=== PATIENT | female | born 1955 | race American Indian/Alaskan Native ===

== ENCOUNTER 2016-12-26 09:39 | Emergency (ER) | payer MEDICARE ==
[2016-12-26 10:16] VITALS: BP 188/82
[2016-12-26] MEDS ORDERED: DECADRON IM ONE (12:22)
[2016-12-26] MEDS ORDERED: TORADOL IM ONE (12:22)
--- NOTE | 2016-12-26 12:22 | Emergency Department Report ---
Upper Extremity - HPI Chief Complaint: Extremity Injury, Upper Stated Complaint: GOUT Time Seen by Provider: 12/26/16 11:40 Upper Extremity: Left Hand (pain, swelling ,redness) Occurred When: >5 Days Mechanism: Other (gout flareup) Severity: severe Symptoms: Yes Pain with Movement (left hand), Yes Limited Range of Movement ( hand, Left), Yes Swelling, No Deformity, No Numbness, No Weakness, No Bruising/ Ecchymosis, No Laceration or Abrasion Other History: Patient here reports that failure to left hand. She reports swelling, redness and pain at the base of her left index finger. Weeks. She states been taking Aleve without any relief. Patient reports eats meat everyday and she's been eating shrimp. She reports that she used to be on medication to prevent gout but she hasn't been on it for a while.pain is 10 out of 10 and aching. Denies any fever or chills. Denies any trauma.Pt had similar incident in the past at same site. ED Review of Systems ROS: Stated complaint: GOUT Other details as noted in HPI Comment: All other systems reviewed and negative Constitutional: denies: chills, fever Respiratory: no symptoms reported Cardiovascular: denies: chest pain, palpitations, edema, syncope Gastrointestinal: denies: abdominal pain, nausea, vomiting Musculoskeletal: joint swelling, arthralgia. denies: back pain Skin: denies: rash Neurological: denies: headache, numbness, paresthesias ED Past Medical Hx - Past Medical History Previous Medical History?: Yes Hx Hypertension: Yes Hx Arthritis: Yes Additional medical history: gout, high cholesterol, depression - Surgical History Past Surgical History?: Yes Additional Surgical History: RIGHT FOOT SURGERY - Family History Family history: no significant - Social History Smoking Status: Never Smoker Substance Use Type: Alcohol - Medications Home Medications: Home Medications Medication Instructions Recorded Confirmed Last Taken Type Amoxicillin [Trimox CAP] 500 mg PO Q8H #30 capsule 03/19/14 Unknown Rx Antipyrine/Benzocaine 14 ml OT QID PRN #1 bottle 03/19/14 Unknown Rx [Antipyrine-Benzocaine Otic Melissa] Colchicine [Colcrys] 0.6 mg PO TID PRN #15 tab 12/26/16 Unknown Rx Ibuprofen [Motrin] 600 mg PO Q8H PRN #15 tablet 12/26/16 Unknown Rx methylPREDNISolone [Medrol Dose 4 mg PO DAILY #1 package 12/26/16 Unknown Rx Jesus] Upper Extremity Exam - Exam General: Vital signs noted. No distress. Alert and acting appropriately. This is a 61-year-old female well-nourished well-developed in no acute distress. Head and Torso: No HEENT Abnormality, No Neck Tenderness, No Chest/Lungs Abnormality, No Abdominal Tenderness, No Back Tenderness Shoulder Exam: Yes Normal Range of Motion in Shoulder, No Shoulder Tenderness, No Clavicle Tenderness, No Shoulder Deformity, No AC Joint Tenderness Arm Exam: No Arm/Humerus Tenderness, No Arm Deformity Elbow: Yes Normal Range of Motion in Elbow, No Elbow Tenderness, No Elbow Deformity Forearm: No Forearm Tenderness, No Forearm Deformity, No Pain with Pronation, No Pain with Supination Wrist: Yes Normal ROM in Wrist, No Wrist Tenderness, No Wrist Deformity, No Snuffbox Tenderness, No Pain with Axial Thumb Compression Hand: Yes Hand Tenderness (dorsal aspect of left hand. No pain to the palm.), Yes Normal ROM in Digit(s) (limited range of motion to left hand due to pain.), No Hand Deformity, No Digit Tenderness, No Digit(s) Deformity, No Tendon Dysfunction CMS Exam: Yes Normal Distal Pulses, Yes Normal Capillary Refill, Yes Normal Distal Sensation, No Broken Skin ED Course Vital Signs 12/26/16 10:13 Temperature 97.9 F Pulse Rate 74 Respiratory 19 Rate Blood Pressure 188/82 O2 Sat by Pulse 96 Oximetry - Reevaluation(s) Reevaluation #1: 12/26/16 13:27 Patient given Toradol 60 mg IM and Decadron 10 mg IM and emergency room. Reports she is feeling better and her pain is down to 310. ED Medical Decision Making - Medical Decision Making ED course: PT here with gout flareup. She was treated with Toradol 60 mg IM and Decadron 10 mg IM which relieved her pain. I discussed with patient foods that is high in Purine And that she should avoid these food. Patient eats Red meat everyday and said that she's been eating shrimp for the last couple days. Patient does have a primary care physician so told her to call on Wednesday to schedule an appointment to follow-up with gout. She was given discharge instruction and gout and lower purine foods. Critical care attestation.: If time is entered above; I have spent that time in minutes in the direct care of this critically ill patient, excluding procedure time. ED Disposition Clinical Impression: Arthralgia of hand, left Gout attack Qualifiers: Gout site: unspecified site Gout etiology: unspecified cause Qualified Code(s) : M10.9 - Gout, unspecified Disposition: DISCHARGED TO HOME OR SELFCARE Is pt being admited?: No Does the pt Need Aspirin: No Condition: Stable Instructions: Acute Gouty Arthritis (ED), Arthralgia (ED), Low Purine Diet (ED) Prescriptions: Colchicine [Colcrys] 0.6 mg PO TID PRN #15 tab PRN Reason: Pain Ibuprofen [Motrin] 600 mg PO Q8H PRN #15 tablet PRN Reason: Pain methylPREDNISolone [Medrol Dose Jesus] 4 mg PO DAILY #1 package Referrals: PRIMARY CARE, [Primary Care Provider] - 2-3 Days Forms: Work/School Release Form(ED)
== END 2016-12-26 13:42 | disposition home or self-care (01) ==
LOC: ED 09:39
DX: M10.9 Gout, unspecified (principal); M25.542 Pain in joints of left hand; I10 Essential (primary) hypertension; E78.00 Pure hypercholesterolemia, unspecified; M19.90 Unspecified osteoarthritis, unspecified site; F32.9 Major depressive disorder, single episode, unspecified
CPT/HCPCS: 96372; 99282; J1100; J1885

== ENCOUNTER 2017-05-24 19:22 | Emergency (ER) | payer MEDICARE ==
[2017-05-24 21:19] LABS: Basophils % (Auto) 0.2 % (0.0-1.8); Eosinophils % (Auto) 0.1 % (0.0-4.3); Hematocrit 26.2 % (30.3-42.9); Hemoglobin 8.7 gm/dl (10.1-14.3); Mean Corpuscular HGB Conc 33 % (30-34); Mean Corpuscular Hemoglobin 30 pg (28-32); Mean Corpuscular Volume 89 fl (79-97); Platelet Count 329 K/mm3 (140-440); Red Blood Count 2.94 M/mm3 (3.65-5.03); Red Cell Distribution Width 14.4 % (13.2-15.2); White Blood Count 16.2 K/mm3 (4.5-11.0)
[2017-05-24] MEDS: NACL 0.9% 1000 ML 1,000 ML IV ONE (21:28)
[2017-05-24 21:29] LABS: INR 1.13 (0.87-1.13)
[2017-05-24 21:30] LABS: Partial Thromboplastin Time 28.8 Sec. (24.2-36.6)
[2017-05-24 21:55] LABS: Alanine Aminotransferase 9 units/L (7-56); Albumin 3.7 g/dL (3.9-5); Albumin/Globulin Ratio 1.3 %; Alkaline Phosphatase 85 units/L (35-129); Anion Gap 20 mmol/L; Blood Urea Nitrogen 20 mg/dL (7-17); Calcium 8.7 mg/dL (8.4-10.2); Carbon Dioxide 21 mmol/L (22-30); Chloride 103.5 mmol/L (98-107); Glucose 164 mg/dL (65-100); Lipase 23 units/L (13-60); Potassium 4.1 mmol/L (3.6-5.0); Sodium 140 mmol/L (137-145); Total Protein 6.6 g/dL (6.3-8.2)
[2017-05-24] MEDS: ZOFRAN IV ONE (22:41)
--- NOTE | 2017-05-24 22:56 | Emergency Department Report ---
HPI - General Chief Complaint: GI Bleed Time Seen by Provider: 05/24/17 22:09 - HPI HPI: This is a 62-year-old Afro-[place] female presents the emergency department with complaint of rectal bleeding since yesterday. She says it is a moderate amount and it is mostly red in color. She is seen at both on the stool and on the toilet paper. Today the patient has had some generalized weakness and dizziness. She says that she gets up and feels as if she is going to pass out. It is associated with some nausea and vomiting. She denies any chest pain, back pain, vision change, headache, slurred speech or any neurological deficits. She said she last had a colonoscopy about 3 years ago. She has a past nuchal history of arthritis, hypertension, hyperlipidemia. Patient says that she does take intermittent Aleve for arthritis. She goes to [facility] for her primary care needs. No recent travel or sick contacts at home. ED Past Medical Hx - Past Medical History Previous Medical History?: Yes Hx Hypertension: Yes Hx Arthritis: Yes Hx Psychiatric Treatment: Yes (depression) Additional medical history: gout, high cholesterol, depression - Surgical History Past Surgical History?: Yes Additional Surgical History: RIGHT FOOT SURGERY - Social History Smoking Status: Current Every Day Smoker Substance Use Type: Alcohol - Medications Home Medications: Home Medications Medication Instructions Recorded Confirmed Last Taken Type Amoxicillin [Trimox CAP] 500 mg PO Q8H #30 capsule 03/19/14 Unknown Rx Antipyrine/Benzocaine 14 ml OT QID PRN #1 bottle 03/19/14 Unknown Rx [Antipyrine-Benzocaine Otic Melissa] Colchicine [Colcrys] 0.6 mg PO TID PRN #15 tab 12/26/16 Unknown Rx Ibuprofen [Motrin] 600 mg PO Q8H PRN #15 tablet 12/26/16 Unknown Rx methylPREDNISolone [Medrol Dose 4 mg PO DAILY #1 package 12/26/16 Unknown Rx Jesus] ED Review of Systems ROS: Stated complaint: BLOODY STOOL Other details as noted in HPI Comment: All other systems reviewed and negative Constitutional: weakness. denies: chills, fever Eyes: denies: eye pain, eye discharge, vision change ENT: denies: ear pain, throat pain Respiratory: denies: cough, shortness of breath, wheezing Cardiovascular: denies: chest pain, palpitations Gastrointestinal: other (rectal bleeding). denies: abdominal pain, nausea, diarrhea Genitourinary: denies: urgency, dysuria, discharge Musculoskeletal: denies: back pain, joint swelling, arthralgia Skin: denies: rash, lesions Neurological: other (dizziness). denies: headache Physical Exam - Physical Exam Vital Signs: Vital Signs 05/24/17 20:11 Temperature 97.6 F Pulse Rate 73 Respiratory 18 Rate Blood Pressure 126/72 O2 Sat by Pulse 100 Oximetry Physical Exam: GENERAL: The patient is well-developed well-nourished. HEENT: Normocephalic. Atraumatic. Extraocular motions are intact. Patient has moist mucous membranes. Pupils equal reactive to light bilaterally. No nystagmus. NECK: Supple. Trachea is midline. CHEST/LUNGS: Clear to auscultation. There is no respiratory distress noted. HEART/CARDIOVASCULAR: Regular. There is no tachycardia. There is no gallop rub or murmur. ABDOMEN: Abdomen is soft, nontender. Patient has normal bowel sounds. There is no abdominal distention. SKIN: Skin is warm and dry. NEURO: The patient is awake, alert, and oriented. The patient is cooperative. The patient has no focal neurologic deficits. The patient has normal speech and gait. Cranial nerves II through XII grossly intact. MUSCULOSKELETAL: There is no tenderness or deformity. There is no limitation range of motion. There is no evidence of acute injury. RECTAL: There is a nonthrombosed external hemorrhoid at the 6 o'clock position. No gross blood seen. Stool is positive for guaiac. ED Course Vital Signs 05/24/17 20:11 Temperature 97.6 F Pulse Rate 73 Respiratory 18 Rate Blood Pressure 126/72 O2 Sat by Pulse 100 Oximetry ED Medical Decision Making - Lab Data Result diagrams: 05/24/17 21:05 05/24/17 21:05 - EKG Data -: EKG Interpreted by Me EKG shows normal: sinus rhythm, axis, intervals, QRS complexes, ST-T waves Rate: normal - EKG Data When compared to previous EKG there are: previous EKG unavailable Interpretation: normal EKG - Radiology Data Radiology results: report reviewed CT of the head does not show any acute process including no hemorrhage, mass, shift, diffuse edema or skull fracture. - Medical Decision Making 62-year-old female presents to the emergency department with complaint of some rectal bleeding since yesterday and then some dizziness and nausea today. She does not have any focal, motor or sensory deficits in her cranial nerves are intact. Heart and lungs are normal auscultation. On rectal exam there is a nonthrombosed external hemorrhoid and there is no gross blood but there is a mild amount of stool that is positive on guaiac testing. Patient's labs does show some anemia with hemoglobin of 8.7 but she does not appear to require transfusion at this time. She does have a leukocytosis of 16,000 but there is no source of infection seen on physical exam. CT of the head did not show any bleed, shift, mass or any acute process. Vital signs stable throughout her ED course. EKG is normal without ST elevation AR, dysrhythmia or ischemia. Patient was seen ambulatory in the emergency department and appeared stable doing so. Although patient does appear safe for discharge home at this time, she does understand that it is imperative that she follows up with gastroenterology as she may need a colonoscopy in the future. She also will return to the emergency department with any worsening of her symptoms or any acute distress. - Differential Diagnosis hemorrhoids, malignancy, diverticulosis, orthostatic hypotension, symptomat Critical Care Time: No Critical care attestation.: If time is entered above; I have spent that time in minutes in the direct care of this critically ill patient, excluding procedure time. ED Disposition Clinical Impression: Rectal bleed, Dizziness Anemia Qualifiers: Anemia type: unspecified type Qualified Code(s): D64.9 - Anemia, unspecified Disposition: DC-01 TO HOME OR SELFCARE Is pt being admited?: No Condition: Stable Instructions: Rectal Bleeding (ED), Lightheadedness (ED), Dizziness (ED), Anemia (ED) Additional Instructions: Please follow-up with your primary care doctor in the next few days. I have also given a referral for a local process expert, Dr. Barry, to follow up regarding your rectal bleeding as you may need a colonoscopy in the near future. Return to the emergency department with any worsening of your symptoms or any acute distress. Referrals: PRIMARY CAREMD [Primary Care Provider] - KRISTINE RICHARD MD [Staff Physician] - [facility] Forms: Accompanied Note Time of Disposition: 02:06
[2017-05-24] MEDS: PEPCID IV ONE (23:24)
--- NOTE | 2017-05-24 23:34 | Cat Scan Report ---
FINAL REPORT PROCEDURE: CT HEAD/BRAIN WO CON TECHNIQUE: Computerized tomography of the head was performed without contrast material. HISTORY: weakness COMPARISON: No prior studies are available for comparison. FINDINGS: Brain: There is no evidence of intracranial hemorrhage. No parenchymal hemorrhage is seen. No mass lesions or mass effect is identified. No abnormal extra-axial fluid collections or masses are seen. Nonspecific mineralization of the basal ganglia are visualized. Ventricles: The ventricles, sulcal pattern and fissures are prominent consistent with mild atrophy. Bones: No evidence of acute fracture. Paranasal sinuses: Visualized portions appear clear. Mastoid air cells: clear IMPRESSION: There is evidence of mild atrophy. No acute or focal intracranial abnormalities are visualized.
[2017-05-25] MEDS: NACL 0.9% 1000 ML 1,000 ML IV ONE (01:01)
[2017-05-25] MEDS: LIDOCAINE VISCOUS 2% PO ONE (01:13)
[2017-05-25] MEDS: ALUM-MAG HYDROX-SIMETH 200-200-20MG/5ML PO ONE (01:13)
[2017-05-25 01:14] VITALS: BP 133/80
[2017-05-25 02:02] LABS: Bilirubin,Urine NEG (Negative); Blood,Urine NEG (Negative); Ketones,Urine TR mg/dL (Negative); Leukocyte Esterase,Urine NEG (Negative); Mucus,Urine FEW /HPF; Nitrite,Urine NEG (Negative); Protein,Urine <15 mg/dL mg/dL (Negative); Urobilinogen,Urine < 2.0 mg/dL (<2.0)
== END 2017-05-25 02:23 | disposition home or self-care (01) ==
LOC: ED 19:22
DX: D64.9 Anemia, unspecified (principal); K62.5 Hemorrhage of anus and rectum; R42 Dizziness and giddiness; I10 Essential (primary) hypertension; F17.200 Nicotine dependence, unspecified, uncomplicated
CPT/HCPCS: 36415; 70450; 80053; 81001; 83690; 84443; 84484; 85025; 85610; 85730; 86850; 86900; 86901; 93005; 93010; 96361; 96374; 96375; 99285; J2405; J7030